=== PATIENT | female | born 1975 | race Caucasian/White ===

== ENCOUNTER 2016-10-10 14:41 | Emergency (ER) | payer MEDICAID, OTHER ==
[~2016-10-10] VITALS: Ht 152.4 cm; Wt 83.1 kg
[2016-10-10] MEDS ORDERED: LIDOCAINE 1%, 20ML SQ ONE (16:00)
[2016-10-10] MEDS ORDERED: DIPH,PERTUSS(ACELL),TET VAC/PF 0.5 ML IM-VACC ONE ×2 (16:00→17:03)
[2016-10-10] MEDS ORDERED: LIDOCAINE 1%, 20ML ONE (17:03)
[2016-10-10] MEDS ORDERED: BACITRACIN ZINC OINT 500U/GM, 0.9 GM ONE (19:12)
[2016-10-10 19:18] VITALS: BP 151/94
== END 2016-10-10 19:34 | disposition home or self-care (01) ==
LOC: ED 19:28
DX: S01.511A Laceration without foreign body of lip, initial encounter (principal); W01.0XXA Fall on same level from slipping, tripping and stumbling without subsequent striking against object, initial encounter; Y93.89 Activity, other specified; Y92.009 Unspecified place in unspecified non-institutional (private) residence as the place of occurrence of the external cause; Y99.8 Other external cause status; Z23 Encounter for immunization
CPT/HCPCS: 40650; 90471; 90715